=== PATIENT | male | born 1935 | race Caucasian/White ===

== ENCOUNTER → 2017-08-18 | Day surgery (SDC) | payer OTHER, MEDICARE ==
[~2017-08-18] VITALS: Ht 172.7 cm; Wt 76.2 kg
[~2017-08-18] MED LIST: ASPIR 8181 MG PO; CENTRUM SILVER1 EAC2 PO; COLESTIPOL HCL1 G1 PO; COZAAR 50 MG TA50 M2 PO; FISH OIL 1,001000 M2 PO; PRILOSEC 20 MG20 MG PO; SLEEP AID50 MG PO; ZOCOR20 MG PO
--- NOTE | ~2017-08-18 | O ---
[facility] [place] [address] OPERATIVE REPORT Name: CRISPIN FINNEY Room #: 160-2 [facility] M..#: [id number] Admission: 08/18/17 Attend Phys: Crispin Allen MD Discharge: Date of : 39 Report #: [id number] THIS REPORT FOR: //name// CC: FAM unknown Sukhdev Allen DATE OF SERVICE: 08/18/2017 PREOPERATIVE DIAGNOSIS: Basal cell carcinoma of left lower lid, medial canthus. POSTOPERATIVE DIAGNOSIS: Basal cell carcinoma of left lower lid, medial canthus. PROCEDURE: Excision of basal cell carcinoma of left medial canthus and left lower lid with frozen sections and myocutaneous advancement flap repair of defect. SURGEON: Crispin Allen M.D. MACHINIST SUPERVISOR: None. ANESTHESIA: MAC. COMPLICATIONS: None. INDICATIONS FOR SURGERY: This pleasant 82-year-old gentleman has a biopsy proven basal cell carcinoma in his left medial canthus that extends onto his left lower lid. He presents today for excision of the residual tumor with frozen sections and repair of that defect. Informed consent was obtained to include but not limited to the potential risk for loss of vision, bleeding, infection, failure to improve the problem, the potential need for further surgery or treatment. DESCRIPTION OF PROCEDURE: The patient was taken to the operating room where 2% Xylocaine with epinephrine mixed with equal parts 0.75% Marcaine with Wydase was administered transcutaneously to the left medial canthus, the glabella, the medial left lower lid and the medial left upper lid. The patient was subsequently prepped and draped in the usual sterile fashion. A fine tip skin marking pen was utilized to outline the lesion including 1-2 mm border of normal appearing tissue. The incisions were then made with a 15C blade and the specimen drawn out of the field and placed on a drawing for the waiting pathologist. Hemostasis was achieved in the field with diligent [address] [address] OPERATIVE REPORT Name: CRISPIN FINNEY Room #: 160-2 [facility]..#: [id number] Admission: 08/18/17 Attend Phys: Crispin Allen MD Discharge: Date of : 39 Report #: [id number] pinpoint monopolar cautery. The pathologist snap froze the specimen and found that there was indeed residual basal cell carcinoma, but that our margins were clear. A myocutaneous flap was then developed originating from the medial most portion of the left lower lid extending into the lateral most portion of the left lower lid. Hemostasis was then re-achieved. The flap was then advanced and secured with multiple interrupted 6-0 plain gut sutures. The wounds were then cleaned and dressed with erythromycin ophthalmic ointment and the patient subsequently transported to the recovery area having tolerated the procedures well with no anesthetic or operative complications being noted. <ELECTRONICALLY SIGNED> By: Crispin Allen MD 08/25/17 0619 [id number] Crispin Allen MD /manny
[2017-08-18 12:00] VITALS: BP 143/77
== END | disposition home or self-care (01) ==
LOC: OR 10:35 → TBACV 11:02 → OR 15:04
DX: C44.119 Basal cell carcinoma of skin of left eyelid, including canthus (principal); I10 Essential (primary) hypertension; E78.00 Pure hypercholesterolemia, unspecified; K21.9 Gastro-esophageal reflux disease without esophagitis; Z90.49 Acquired absence of other specified parts of digestive tract; Z98.41 Cataract extraction status, right eye; Z98.42 Cataract extraction status, left eye; Z87.891 Personal history of nicotine dependence; Z98.890 Other specified postprocedural states; Z88.2 Allergy status to sulfonamides; Z88.8 Allergy status to other drugs, medicaments and biological substances; Z79.899 Other long term (current) drug therapy; Z79.82 Long term (current) use of aspirin
CPT/HCPCS: 10081; 50010; 50101; 50386; 50398; 51636; 56531; 62110; 62850; 70005